=== PATIENT | female | born 1995 ===

== ENCOUNTER 2021-04-06 13:41 | Emergency (ER) | payer MEDICAID ==
[~2021-04-06] VITALS: Ht 152.4 cm; Wt 54.4 kg
--- NOTE | 2021-04-06 15:01 | NUR ---
PT WAS EVALUATED BY DR COLLAZO. PT WAS D/C'd TO HOME. D/C INSTRUCTIONS GIVEN TO THE PT BY DR COLLAZO.
[2021-04-06 15:02] VITALS: BP 129/75
== END 2021-04-06 15:25 | disposition home or self-care (01) ==
LOC: ER 13:42
DX: S59.802A Other specified injuries of left elbow, initial encounter (principal); V00.138A Other skateboard accident, initial encounter; Y93.51 Activity, roller skating (inline) and skateboarding; Y92.89 Other specified places as the place of occurrence of the external cause
CPT/HCPCS: 73080; A4663